=== PATIENT | male | born 2000 | race Caucasian/White ===

== ENCOUNTER 2018-04-04 12:41 | Emergency (ER) | payer OTHER ==
[2018-04-04 12:48] VITALS: BP 105/66; PULSE 77; RESP 18; TEMP 98
[2018-04-04] MEDS ORDERED: LIDOCAINE 1% INJ 10MG/ML (20 ML MDV) SQ STA (12:52)
[2018-04-04] MEDS ORDERED: DIPH,PERTUS(ACELL)TETVAC-LF 0.5 ML VIAL IM ONE (12:52)
--- NOTE | 2018-04-04 13:05 | ED ---
General Adult HPI - General Chief complaint: Wound/Laceration Stated complaint: L Hand Laceration Source: patient, RN notes reviewed, old records reviewed Mode of arrival: ambulatory Limitations: no limitations - History of Present Illness Initial comments: 17-year-old male patient no pertinent past medical history presents to ED after sustaining a approximately 3 similar laceration to the webbing between his left hallux and left second digit. Patient was opening a present with a knife when the knife slipped causing a laceration. Patient denies any other injury. Patient denies any other complaints including, chest pain, shortness of breath, abdominal pain. Patient states that he has some minor paresthesias in his left thumb. Patient states that he has full range of motion of his left thumb. Patient has full range of motion of his left hand and wrist. Systemic: Pt denies fatigue, myalgia, fever/chills, rash. Pt denies weakness, night sweats, weight loss. Neuro: Pt denies headache, visual disturbances, syncope or pre-syncope. HEENT: Pt denies ocular discharge or irritation, otalgia, rhinorrhea, pharyngitis or notable lymphadenopathy. Cardiopulmonary: Pt denies chest pain, SOB, heart palpitations, dyspnea on exertion. Abdominal/GI: Pt denies abdominal pain, n/v/d. : Pt denies dysuria, burning w/ urination, frequency/urgency. Denies new onset urinary or bowel incontinence. MSK: Pt denies myalgia, loss of strength or function in extremities. Neuro: Pt denies new onset weakness, paresthesias. - Related Data Allergies Allergy/AdvReac Type Severity Reaction Status Date / Time bee venom protein (honey bee) Allergy Anaphylaxis Verified 04/04/18 12:42 Review of Systems ROS Statement: Those systems with pertinent positive or pertinent negative responses have been documented in the HPI. ROS Other: All systems not noted in ROS Statement are negative. Past Medical History Past Medical History: No Reported History History of Any Multi-Drug Resistant Organisms: None Reported Past Surgical History: Appendectomy Past Psychological History: No Psychological Hx Reported Smoking Status: Current some day smoker Past Alcohol Use History: Occasional Past Drug Use History: Marijuana General Exam - General Exam Comments Initial Comments: Constitutional: NAD, AOX3, Pt has pleasant affect. HEENT: NC/AT, trachea midline, neck supple, no lymphadenopathy. Posterior pharynx non erythematous, without exudates. External ears appear normal, without discharge. Mucous membranes moist. Eyes PERRLA, EOM intact. There is no scleral icterus. No pallor noted. Cardiopulmonary: RRR, no murmurs, rubs or gallops, no JVD noted. Lungs CTAB in anterior and posterior garcia. No peripheral edema. Abdominal exam: Abdomen soft and non-distended. Abdomen non-tender to palpation in all 4 quadrants. Bowel sounds active in LLQ. No hepatosplenomegaly. No ecchymosis Neuro: CN II-XII grossly intact. No nuchal rigidity. MSK: Approximately 3 cm laceration on left hand in web in between first and second digit. Patient has full range of motion of left hallux, all digits. Patient full range of motion of wrist. Patient has sensation and hand of all fingers of left hand. Neurovascularly intact, capillary refill less than 2 seconds, radial pulse +2. No posterior calf tenderness bilaterally, homans sign negative bilaterally. Posterior tibialis and radial pulse +2 bilaterally. Sensation intact in upper and lower extremities. Full active ROM in upper and lower extremities, 5/5 stregnth. Limitations: no limitations Course Vital Signs 04/04/18 12:42 Temperature 98 F Pulse Rate 77 Respiratory 18 Rate Blood Pressure 105/66 O2 Sat by Pulse 99 Oximetry Medical Decision Making - Medical Decision Making 17-year-old male patient no pertinent past medical history presents to ED after sustaining a approximately 3 similar laceration to the webbing between his left hallux and left second digit. Patient was opening a present with a knife when the knife slipped causing a laceration. Physical exam displayed Approximately 3 cm laceration on left hand in web in between first and second digit. Patient has full range of motion of left hallux, all digits. Patient full range of motion of wrist. Patient has sensation and hand of all fingers of left hand. Neurovascularly intact, capillary refill less than 2 seconds, radial pulse +2. Wound closed with 3 simple interrupted sutures. Pt neurovascularly intact after procedure. Plain film did not display any bony involvement. Procedure conducted by dr clayton. Pt complained of some paresthesias in his affected hallux. Pt to monitor sx and f/u with PCP. Patient to follow with PCP in 1-2 days. Patient to return to ED if any signs symptoms develop. Patient to monitor for signs symptoms of infection. Case discussed and patient seen by Dr. Clayton. Tetanus updated Disposition Clinical Impression: Laceration Disposition: HOME SELF-CARE Condition: Good Instructions: Care For Your Stitches (ED), Laceration (ED) Additional Instructions: Patient to adhere to previously discussed treatment plan and will take medication(s) as directed. Patient to follow up with PCP in 1-2 days. Patient to return to ED if symptoms do not improve. Is patient prescribed a controlled substance at d/c from ED?: No Referrals: Lorraine Salinas DO [Primary Care Provider] - 1-2 days
--- NOTE | 2018-04-04 13:38 | XR ---
EXAMINATION TYPE: XR hand complete LT DATE OF EXAM: 04/04/2018 CLINICAL HISTORY: Laceration injury with pain TECHNIQUE: Frontal, lateral and oblique images of the left hand are obtained. COMPARISON: None. FINDINGS: There is no acute fracture/dislocation evident in the left hand. The joint spaces in the l eft hand appear within normal limits. The overlying soft tissue appears unremarkable without suspici ous radiodense foreign body seen. IMPRESSION: There is no acute fracture or dislocation in the left hand.
== END 2018-04-04 13:52 | disposition home or self-care (01) ==
LOC: EC 12:41
DX: S61.412A Laceration without foreign body of left hand, initial encounter (principal); F17.200 Nicotine dependence, unspecified, uncomplicated; Z91.018 Allergy to other foods; Z23 Encounter for immunization; W26.0XXA Contact with knife, initial encounter; Y93.89 Activity, other specified; Y92.009 Unspecified place in unspecified non-institutional (private) residence as the place of occurrence of the external cause
CPT/HCPCS: 73130; 90715; 99283; 90471; 12002; J2001